=== PATIENT | male | born 1960 | race Caucasian/White ===

== ENCOUNTER 2023-09-01 06:35 | Day surgery (SDC) | payer OTHER, SELFPAY ==
[2023-09-01 08:34] VITALS: BMI 29.5
[2023-09-01 08:35] VITALS: BMI 29.5
[2023-09-01 08:36] VITALS: BP 128/84
[2023-09-01 08:48] LABS: Glucose - Point of Care 88 mg/dl (70-99)
[2023-09-01 10:11] VITALS: BP 102/69
[2023-09-01 10:15] VITALS: BP 97/85
[2023-09-01 10:30] VITALS: BP 119/78
[2023-09-01 10:45] VITALS: BP 129/80
== END 2023-09-01 10:59 | disposition home or self-care (01) ==
LOC: GI 06:35
PROVIDERS: ATTENDING PHYSICIAN Internal Medicine Gastroenterology
DX: Z12.11 Encounter for screening for malignant neoplasm of colon (principal); K57.30 Diverticulosis of large intestine without perforation or abscess without bleeding; K64.0 First degree hemorrhoids; Z86.010 Personal history of colon polyps; Z85.038 Personal history of other malignant neoplasm of large intestine; Z98.890 Other specified postprocedural states
CPT/HCPCS: 45331; 88305; 82962

== ENCOUNTER 2024-01-13 03:06 | Inpatient (IN) | payer OTHER, SELFPAY ==
[2024-01-12 22:39] VITALS: BP 148/81
[2024-01-12 22:56] LABS: % Basophils 0.2 % (0-2); % Eosinophils 1.3 % (0-6); % Immature Granulocytes 0.4 % (0-0.5); % Lymphocytes 8.6 % (20.5-51.1); % Neutrophils 80.5 % (42.2-75.2); Absolute Eosinophils 0.2 10^3/uL (0-0.7); Absolute Immature Granulocytes 0.1 10^3/uL (0-0.05); Absolute Lymphocytes 1.1 10^3/uL (1.2-3.4); Absolute Monocytes 1.1 10^3/uL (0.1-0.6); Hematocrit 38.8 % (39.0-52.0); Hemoglobin 13.4 g/dL (13.0-18.0); Mean Corp Hgb Conc. 34.5 g/dL (33.0-37.0); Mean Corpuscular Hgb 28.7 pg (27.0-31.0); Mean Corpuscular Volume 83.1 fL (80.0-94.0); Mean Platelet Volume 9.3 fL (7.4-10.4); Nucleated Red Blood Cells % 0 % (-); Platelet Count 352 10^3/uL (130-400); Red Blood Cell Count 4.67 10^6/uL (4.70-6.10); Red Cell Dist. Width 13.2 % (11.5-14.5); White Blood Cell Count 12.4 10^3/uL (4.8-10.8)
[2024-01-12 23:11] LABS: Lactic Acid 1.2 mmol/L (0.7-2.0)
[2024-01-12 23:37] LABS: ALT (SGPT) 13 U/L (0-50); AST (SGOT) 16 U/L (17-59); Albumin 4.2 g/dl (3.5-5.0); Alkaline Phosphatase 73 U/L (38-126); Blood Urea Nitrogen 23 mg/dl (9-20); Calcium 9.4 mg/dl (8.4-10.2); Carbon Dioxide 25 mmol/L (22-30); Chloride 100 mmol/L (98-107); Glucose 237 mg/dl (70-99); Potassium 4.6 mmol/L (3.5-5.1); Sodium 136 mmol/L (135-145); Total Bilirubin 0.8 mg/dl (0.2-1.3); Total Protein 6.9 g/dl (6.3-8.2); eGFR > 60.00
[2024-01-13] VITALS (12 sets, daily range): BP systolic 100–148; BP diastolic 61–83; BMI 3873.8; BMI 27.3
[2024-01-13] MEDS: TYLENOL 1000 MG PO (00:14)
--- NOTE | 2024-01-13 00:14 | ED.GENMED ---
History of Present Illness
General
Chief Complaint: Skin Problem
Source: patient
Exam Limitations: none
Time Seen by Provider: 01/12/24 23:46
History of Present Illness
History of Present Illness:
This is a 63 year old male that comes in with c/o possible wound infection. State that he has neuropathy and it is worse on the right side. States that he thinks he had a blister and now it is infected. State that he noticed this about 2 weeks ago
and he thought it was good. Then today it started to swell and he started with a fever yesterday. States that the fever was worse today. States that he had shaking chills with the fever. Denies any chest pain, SOB, abd pain, nausea, vomiting,
diarrhea, headache, dizziness, urinary burning.
Past History
Past History
ED Past Medical History: Hypercholesterolemia, NIDDM and Other (Neuropathy)
ED Past Surgical History: Orthopedic (Right knee surgery) and Urological (Vasectomy); Negative Cardiac
Social History
Tobacco: Non-smoker
Alcohol: Occasional
Drug: None
Personal:
Living: with family
Employment: Employed
Family History
Family History: Diabetes
Review of Systems
Review of Systems
All Other Systems: ROS reviewed and negative except as documented in HPI and ROS
Constitutional: Reports fever and chills
EENT: Reports no symptoms
Respiratory: Reports no symptoms; Denies cough or trouble breathing
Cardiac: Reports no symptoms; Denies chest pain
ABD/GI: Reports no symptoms; Denies abdominal pain, nausea, vomiting or diarrhea
: Reports no symptoms; Denies dysuria, frequency or urgency
Musculoskeletal: Reports other (Swelling right foot)
Skin: Reports other (Open wound on the right foot)
Neurological: Reports no symptoms; Denies dizzy or headache
Psychiatric: Reports no symptoms
Phy Exam
General Physical Exam
General Presentation: no apparent distress
General age: appears stated age
General Skin: warm and dry
General Habitus: normal
General Mental: alert
General Hydration: dry mucous membranes
ENT Exam
ENT Exam: TM's normal, pharynx normal and neck supple
Eye Exam
Eye Exam: EOMI
Cardiovascular Exam
Cardiovascular Exam: regular rate/rhythm and normal peripheral pulses
Pulmonary Exam
Pulmonary Exam: lungs clear, no respiratory distress, no rales, chest non tender, no crackles, no rhonchi, no wheezing and no cough
Gastrointestinal Exam
Gastrointestinal Exam: normal bowel sounds, non tender, soft, no organomegaly, no pulsatile mass and non distended
Musculoskeletal Exam
Musculoskeletal Exam: full ROM and edema (of the right foot slight nonpitting)
Skin Exam
Skin Exam: normal color, warm/dry, no petechia and other (Quarter size open wound on the right planter aspect of the foot. Fowl smell noted. Increased warmth and redness slightly noted under the dumont skin)
Psychiatric Exam
Psychiatric Exam: normal mood/affect
Course
Orders/Labs/Results
Orders:
Orders
01/12/24 22:45
Complete Blood Count/With Diff Urgent
Comprehensive Metabolic Panel Urgent
Lactate Level [Lactic Acid] Urgent
01/13/24 00:12
Acetaminophen [Tylenol] 1,000 mg .ROUTE .STK-MED ONE
Piperacillin/Tazo 3.375 Gram [Zosyn] 3.375 gram in 50 ml IV NOW
Vancomycin 1 Gram/200 ml [Vancocin] 1 gram in 200 ml IV NOW
CR Foot - Right Min 3 Views Urgent
Comment:
Reason For Exam: Open wound on the planter aspect
01/13/24 00:13
Acetaminophen [Tylenol] 1,000 mg PO NOW STA
Acetaminophen [Tylenol] 1,000 mg PO NOW STA
01/13/24 00:14
0.9% Sodium Chloride 1000 ml [Nss] 1,000 ml IV BOLUS
01/13/24 00:25
Wound Culture [Wound/Abscess/Other Culture] Urgent
EMI Source: Foot
Specimen Description: Right
Date Specimen was Collected: 01/13/24
Time Specimen was Collected: 00:16
01/13/24 01:32
0.9% Sodium Chloride 1000 ml [Nss] 1,000 ml IV BOLUS
01/13/24 02:35
Admit/Transfer Patient As Directed
Co-Sign Provider:
Level of Care: Inpatient admission
Assign to:: Telemetry
Physician / Group: htay
Diagnosis: Diabetic Rt foot wound infection with SIRS picture, associated sepsis
Reason for Telemetry: Other
Other Reason for Telemetry: sepsis
Date to Stop Telemetry: 01/15/24
Time to Stop Telemetry: 11:00
Reason for Hospitalization: Diabetic Rt foot wound infection with SIRS picture, associated sepsis
Expected length of stay greater than two midnights?: Yes
ELOS- Estimated Length of Stay in days: 3
I certify the patient meets the requirements for IP care: Yes
PRN Pain Medication Management As Directed
May give lesser potent ordered pain med per pt: Yes
preference::
Protocol:: Medication orders for pain may be administered in a
manner that supports deferring to patient preference
when the pt is:
- Requesting an ordered lesser potent pain medication.
Least to most potent pain medications are defined
as: acetaminophen < NSAID < tramadol < opioids
(morphine, oxycodone, hydromorphone).
- Requesting a lesser dose of the same medication IF
ORDERED.
- Requesting a less intrusive route of administration
if both routes are prescribed by the provider (PO <
IV).
01/13/24 02:39
Code Status As Directed
Resuscitation Status: Full Code
01/13/24 03:00
Flush (0.9% Sodium Chloride) [Flush (Nss)] See Dose Instructions IV PER PROTOCOL
01/15/24 11:00
DC Protocol for Telemetry ONCE
Abnormal Lab Results
01/12/24
22:45
WBC 12.4 H 10^3/uL
(4.8-10.8)
RBC 4.67 L 10^6/uL
(4.70-6.10)
Hct 38.8 L %
(39.0-52.0)
Abs Immat Gran (auto) 0.1 H 10^3/uL
(0-0.05)
Absolute Neuts (auto) 10.0 H 10^3/uL
(1.4-6.5)
Absolute Lymphs (auto) 1.1 L 10^3/uL
(1.2-3.4)
Absolute Monos (auto) 1.1 H 10^3/uL
(0.1-0.6)
Neutrophils % 80.5 H %
(42.2-75.2)
Lymphocytes % 8.6 L %
(20.5-51.1)
BUN 23 H mg/dl
(9-20)
Glucose 237 H mg/dl
(70-99)
AST 16 L U/L
(17-59)
01/12/24 22:45
01/12/24 22:45
Leukocytosis, Dehydration. Hyperglycemia, Lactic acid normal at 1.2
Vital Signs
Initial and Last Documented VS:
Initial Vital Signs
Temp Pulse Resp BP Pulse Ox
101.1 F H 116 19 148/81 98
01/12/24 22:39 01/12/24 22:39 01/12/24 22:39 01/12/24 22:39 01/12/24 22:39
Last Documented Vital Signs
Temp Pulse Resp BP Pulse Ox
99.3 F 94 22 109/67 92
01/13/24 01:20 01/13/24 03:00 01/13/24 03:00 01/13/24 03:00 01/13/24 03:00
MDM/Problems Addressed
Differential Diagnosis Includes:
Cellulitis, open wound
MDM/Problems Addressed:
This is a 63 year old male that comes in with c/o open wound on the right planter aspect of the foot. States that he started with a fever yesterday and the fever was worse today. States that today his foot started to swell.
Explained to patient that there is a fowl smell from the wound and that his WBC are elevated. Patient is a diabetic. Will get X-ray of foot and admit for IV antibiotics. Hospitalist notified.
Chronic conditions affecting care: DM
Acute Exacerbation and/or Progression of Chronic Illness: DM (Neuropathy)
*Radiology
Radiology exam reviewed: preliminary read by ED provider (Right foot- Degenerative changes. Question if patient has broken his toe in the past. Unable to r/o any osteo. )
*Pulse Oximetry
Patient hypoxic: no
*EKG
Interpreted by ED Provider?: NA
Rate: EKG- N/A
*Software Development Project Manager Interpretation
Rate: Software Development Project Manager- N/A
*Critical Care Note
Total Time (30-74mins, 75-104mins- exclusive of procedures): Not Applicable
ED Attending Note
-
Portions of this chart may have been created with voice recognition software.� Occasional wrong word or��sound alike� substitutions may have occurred due to the inherent limitations of voice recognition software.
Discharge Plan
Departure
Patient Disposition: Admit
Date of Disposition: 01/13/24
Time of Disposition: 00:24
Admit to: Med/Surg
Presentation/result/management discussed w/ accepting MD/DO: Hospitalist
Patient with high blood pressure during this ER visit?: Yes
Covid-19: Not Applicable
Discharge Problem:
Open wound of right foot, Cellulitis of foot
Interventions
Interventions:
*Risk Screen - Suicide Last Done: 01/12/24 22:39
*General Assessment Last Done: 01/12/24 22:39
*Neglect/Abuse Screening Last Done: 01/12/24 22:39
ED- Fall Risk Assessment Last Done: 01/13/24 01:22
*ED COVID-19 Vaccine History Last Done: 01/12/24 22:39
ED-Skin Assessment Last Done: 01/12/24 23:50
[2024-01-13] MEDS: NSS 1000 IV ×4 (00:35→16:58)
[2024-01-13] MEDS: ZOSYN 50 IV ×5 (00:35→23:58)
[2024-01-13] MEDS: VANCOCIN 200 IV (01:14)
--- NOTE | 2024-01-13 02:28 | HPS.HSE ---
Family Physician
-
Family Physician: Angie Barvo
Chief Complaint
-
Fever, Diabetic foot wound
History of Present Illness
HPI
63M HX IrT2DM with neuropathy seen at ER for evaluation of Rt foor woound
Open Rt foot wound
- stated as blister
- Denied trauma
- onset of swelling
- associated with fever with chills and rigors at home yesterday
- T max at ER 101.3
- Quarter size open wound on the right planter aspect of the foot.
- Fowl smell noted
- Increased warmth and redness
ROS;
Denies any chest pain, SOB, abd pain, nausea, vomiting, diarrhea, headache, dizziness, urinary burning.
Medical History
Past Medical History
Past Medical History: Reports Hypercholesterolemia and NIDDM (plus neuropathy )
Past Surgical History: Reports Orthopedic (Right knee surgery) and Urological (Vasectomy)
Social History
Tobacco: Non-smoker
Alcohol: Occasional
Personal:
Living: With Family
Employment: Employed
Family History
Family History: Not pertinent
Allergies / Home Medications
Allergies reflects when Allergies were last updated in [employer].
Home Medications with original date entered in [employer]
Allergy/Medication List:
Allergies
Allergy/AdvReac Type Severity Reaction Status Date / Time
No Known Allergies Allergy Verified 01/12/24 22:39
Home Medications
rosuvastatin 5 mg tablet 10 mg PO DAILY High cholesterol 02/06/14
aspirin 81 mg tablet,delayed release 81 mg PO DAILY Blood clot prevention/tx 11/07/19
metformin 1,000 mg tablet 1,000 mg PO BID@0800,1700 Diabetes 11/07/19
empagliflozin 25 mg tablet (Jardiance) 25 mg PO DAILY 12/16/22
insulin glargine 100 unit/mL (3 mL) subcutaneous pen (Lantus Solostar U-100 Insulin) 17 unit SC DAILY 12/16/22
sodium sul 1.479 gram-potas ch 0.188 gram-magnes sul 0.225 gram tablet (Sutab) 1 tab PO . DIRECTED 12/26/22
tirzepatide 5 mg/0.5 mL subcutaneous pen injector (Mounjaro) 5 mg SC QWEEK 09/01/23
Review of Systems
-
Constitutional: Reports No Symptoms
EENT: Reports No Symptoms
Respiratory: Reports No Symptoms
Cardiac: Reports No Symptoms
Abdomen/GI: Reports No Symptoms
: Reports No Symptoms
Musculoskeletal: Reports No Symptoms
Skin: Reports See HPI
Neurological: Reports No Symptoms
Endocrine: Reports No Symptoms
Hematologic/Lymphatic: Reports No Symptoms
Psych: Reports No Symptoms
Physical Exam
Vital Signs
Vital Signs
Temp Pulse Resp BP Pulse Ox
99.3 F 107 18 100/61 92
01/13/24 01:20 01/13/24 01:20 01/13/24 01:20 01/13/24 01:20 01/13/24 01:20
Physical Exam
General: Well Developed, Well Nourished and No Apparent Distress
HEENT: NormoCephalic, Moist mucous membranes and Atraumatic
Respiratory: Clear
Cardiac: S1/S2 and Regular Rhythm; No Murmur or Rub
GI: Soft, Non Tender, Non Distended and Normal Bowel Sounds; No Organomegaly
Rectal: Deferred by Provider
Musculoskeletal: No Clubbing, No Cyanosis and No Edema
Skin: Rash and Other (Quarter size open wound on the Rt planter aspect of the foot. POS Fowl smell noted. Increased warmth and redness slightly noted under the skin)
Neuro: Nonfocal/grossly intact
Psych: Calm
Laboratory Results
-
01/12/24 22:45
01/12/24 22:45
Laboratory Results
Lactic Acid 1.2 mmol/L (0.7-2.0) 01/12/24 22:45
Total Bilirubin 0.8 mg/dl (0.2-1.3) 01/12/24 22:45
AST 16 U/L (17-59) L 01/12/24 22:45
ALT 13 U/L (0-50) 01/12/24 22:45
Alkaline Phosphatase 73 U/L (38-126) 01/12/24 22:45
Data Reviewed
-
Lab Data: Labs Reviewed by me
Old Records: Reviewed
Impression/Plan
-
Reviewed VS: T max 101.3 HR 107 BP 148/80 --> 100/60 HR 107
Data
WCC 12.4
BUN 23
eGFR > 60
R Foot XR; pending report
Wd Cx sent
Last hospitalist admission:
11/07/19- 11/10/19 PDX: Cellulitis of right toe/foot due to diabetes mellitus.
ASSESSMENT & PLAN
Pending Rx reconciliation
Diabetic Rt foot wound infection with mal odor plus SIRS picture ( T 101.3, ST > 90, WCC > 9)
Associated sepsis
No prior MRSA screen micro data
HX Right great toe wound with surrounding cellulitis in october 2019: No XR evidence of OM
- F/U final XR report for OM
- Wd Cx sent from ER
- Empiric Zosyn was given before BCx; No BCx was sent at ER
- Hold further Vancomycin for now
- Podiatry consult
T2DM on Insulin plus Metformin
- held Metformin
- cont Lantus after reconciliation
- add ISS low
Hyperlipidemia
- on Rosuvastatin
- on baby ASA
DVT Px: LMWH
Code: Full
IP MS
[2024-01-13 03:46] LABS: Glucose - Point of Care 157 mg/dl (70-99)
[2024-01-13 07:00] LABS: Glucose - Point of Care 124 mg/dl (70-99)
[2024-01-13] MEDS: NOVOLOG FLEXPEN-LOW RESISTANCE SC ×3 (09:21→16:51)
[2024-01-13] MEDS: ASPIR LOW (ENTERIC COATED) 81 MG PO (09:21)
[2024-01-13] MEDS: CRESTOR 10 MG PO (09:21)
[2024-01-13] MEDS: JARDIANCE 25 MG PO (09:26)
--- NOTE | 2024-01-13 10:35 | PHA.VAN.IN ---
Assessment
- Assessment
Renal Function: Appears similar to baseline (SCR may be slightly elevated)
Maximum Temperature: 101.1 F - ORAL - 01/11 23:39
Concomitant Antimicrobials: piperacillin/tazobactam
AUC Dosing Plan
- Dosing Variables
Dosing Weight (kg): 91
Dosing CrCl (ml/min): 84
Vd coefficient (L/kg): 0.7
- Empiric Dosing
Initial / Loading Dose: 2000mg - administration pending
Maintenance Regimen: Vanc 1250mg Q12H starting 01/13 06
Estimated AUC (mcg*h/mL): 559
Estimated Peak (mcg*h/mL): 33.3
Estimated Trough (mcg/ml): 15.3
Estimated Half Life (H): 9.3
Received 1000mg 01/12 01:14 - expect levels low - will give load to maintain through rest of day
- Monitoring
No levels ordered at this time: consider levels in next few days
Pharmacokinetics Vancomycin I
- -
Patient Age: 63
Patient Sex: Male
Vancomycin Day #: 1
Indication: Skin And Soft Tissue
Requesting Provider: Dr. Jean Moreno
Pertinent Antimicrobial Allergies:
NKDA
Height / Weight:
Height 6 ft
Actual Weight 91.371 kg
Pertinent Past Medical History: DM
- Vital Signs / Lab Results
Temp Pulse Resp BP Pulse Ox
99.1 F 90 16 119/64 98
01/13/24 07:00 01/13/24 07:00 01/13/24 07:00 01/13/24 07:00 01/13/24 07:00
Lab Results - Hematology
01/12/24
22:45
WBC 12.4 H
Lab Results - Chemistry
01/12/24
22:45
BUN 23 H
Creatinine 1.0
Albumin 4.2
01/12/24 01/13/24 01/13/24
22:45 03:31 07:31
Lactic Acid 1.2 Cancelled Cancelled
[2024-01-13 11:58] LABS: Glycohemoglobin (HgbA1c) 8.1 % (4.0-5.6)
[2024-01-13 11:59] LABS: Lactic Acid 0.8 mmol/L (0.7-2.0)
[2024-01-13] MEDS: VANCOCIN 540 MG IV (12:19)
[2024-01-13 12:55] LABS: Glucose - Point of Care 136 mg/dl (70-99)
--- NOTE | 2024-01-13 13:17 | W.PN.UPDATE ---
Update Note
Progress Note Update
Nonbillable note
1. Right Diabetic foot infection - right foot lateral plantar area wound ,no drainage, no significnat bogginess on exam. wound cs collected in ER. no blood cs, already on vanc/zosyn. Foot xr did not show any osteo,. MRI foot ordered to check for
soft tissue infection extent. Podiatry and ID to evaluate
Denies vasculopathy in past, no cva/cad/pad. diabetic for 5-10 yrs - check LE art US.
2. NIDDM -reported last A1c of 7.5. On Mounjaro/Jardiance only. Have not been on insulin in the past. Managed by endocrinology. Maintain on sliding scale with Jardiance. Follow renal function. Repeat A1c pending
--- NOTE | 2024-01-13 14:16 | CM ---
Alert awake oriented patient who lives with his Elena who lives in a 2 story home with 1 step to enter and 14 steps to bed and bathroom. He is independent in driving and in all activities of daily living.He was offered VN he declined need.
No VN hx / No SNF history
Pharmacy [facility]
PCP DR Bravo
PLAN Home Declined VN
[2024-01-13 15:41] LABS: Lactic Acid 0.7 mmol/L (0.7-2.0)
[2024-01-13 16:34] LABS: Glucose - Point of Care 83 mg/dl (70-99)
--- NOTE | 2024-01-13 16:34 | CON.ID ---
Consultation
-
Date/Time Consultation Requested: 01/13/24 10:38
Date/Time Consultation Performed: 01/13/24 16:34
Requesting Provider: Dr Moreno
Performing Provider: Dr Myers
Reason for Consultation: right foot diabetic wound
Chief Complaint / Past History
Chief Complaint
right plantar foot wound
History of Present Illness
Mr Javed is a 63 year old male with history of DM2 who developed a blister over the right medial plantar foot spontaneously, no trauma. He has had fevers, chills, foul smelling drainage, increased warmth and redness. Denies: chest pain,
shortness of breath, abd pain, nausea, vomiting, diarrhea, headache, dizziness, urinary burning.
Since arrival here tmax 101.1 orally, bp stable, wbc 12.4, hgb 13, plt 352, L shift noted, cr 1.0, a1c 8.1, lactic acid 1.2, t bili 0.8, ast 16, alt 13, alk pohs 73, arterial study done not yet read, xray: 'Moderate degenerative changes of the first
metatarsophalangeal joint with chronic osseous fragments about the joint space, moderate swelling... foreign body noted, no convincing osteo' 2020 MRI of the right foot also on file: suggestion of osteomyelitis or posttraumatic injury of the FIRST
MTP joint; he does report mote treatment. I do not see an evaluation from [place] or further notes in [facility] around that time. Currently on vancomycin and zosyn.
Past History
Additional Past Medical History:
Hypercholesterolemia and NIDDM
Additional Past Surgical History:
Orthopedic (Right knee surgery) and Urological (Vasectomy)
Allergy History:
No Known Allergies Allergy (Verified 01/12/24 22:39)
Medications Reviewed: Yes
Social History
Tobacco: Non-Smoker
Alcohol: Occasional
Personal:
Family History
Family History: Not Pertinent
Review of Systems
Review of Systems
General: Fever and Chills
All systems: All other systems were reviewed and were negative
Vital Signs
Temp Pulse Resp BP Pulse Ox
99.5 F 98 18 148/83 99
01/13/24 15:13 01/13/24 15:13 01/13/24 15:13 01/13/24 15:13 01/13/24 15:13
Physical Exam
Lab / Diagnostic Study Results
01/12/24 22:45
01/12/24 22:45
Abs Immat Gran (auto) 0.1 10^3/uL (0-0.05) H 01/12/24 22:45
Absolute Neuts (auto) 10.0 10^3/uL (1.4-6.5) H 01/12/24 22:45
Absolute Lymphs (auto) 1.1 10^3/uL (1.2-3.4) L 01/12/24 22:45
Absolute Monos (auto) 1.1 10^3/uL (0.1-0.6) H 01/12/24 22:45
Absolute Basos (auto) 0.0 10^3/uL (0-0.2) 01/12/24 22:45
Immature Gran % 0.4 % (0-0.5) 01/12/24 22:45
Neutrophils % 80.5 % (42.2-75.2) H 01/12/24 22:45
Lymphocytes % 8.6 % (20.5-51.1) L 01/12/24 22:45
Monocytes % 9.0 % (1.7-9.3) 01/12/24 22:45
Eosinophils % 1.3 % (0-6) 01/12/24 22:45
Basophils % 0.2 % (0-2) 01/12/24 22:45
Lactic Acid 0.7 mmol/L (0.7-2.0) 01/13/24 15:12
Microbiology Results
Micro:
01/13/24 00:25 Wound Culture - Pending
Foot - Right Gram Stain - Preliminary
01/13/24 05:35 MRSA Screen - Pending
Nose
Assessment / Plan
Diabetic Foot Wound -chronic
DM2
- recommend MRI foot with IV contrast
- had fevers and chills and on empiric antibiotics vancomycin and zosyn, these can continue
- 2020 MRI suggestive of osteomyelitis in the same location
- getting vascular assessment
- recommend tight glucose control - can be addressed outpatient
- podiatry consultation pending - appreciate assistance, partial amputation might be a curative option
[2024-01-13] MEDS: LOVENOX 40 MG SC (16:59)
--- NOTE | 2024-01-13 20:57 | W.PN.POD ---
Today's Communication
- Today's Communication
podiatry consult for diabetic right foot wound
Assessment / Plan
- -
diabetic foot ulcer plantar 5th MPJ, lateral aspect
x-ray negative for osteo
ordered MRI, tomorrow
awaiting results
continue iv antibiotics vanco/zosyn
wound care consult
darco offloading shoe
Subjective/Objective
- Subjective
patient presented to ED with fever, chills and wound bottom
of right foot
diabetic patient with neuropathy
NIDDM 20 years, a1c 7.5
thinks a blister started 2 weeks ago
healed but then worsened this week
right foot swelled with open wound right foot, admitted for IV antibiotics
vascular normal jama, no stenosis
- Objective
Temp Pulse Resp BP Pulse Ox
98.8 F 96 18 110/65 95
01/13/24 19:40 01/13/24 19:40 01/13/24 19:40 01/13/24 19:40 01/13/24 19:40
01/12/24 22:45
01/12/24 22:45
Vital Signs and Lab results were reviewed.
quarter sized wound plantar surface 5th
metatarsal head
no odor
moderate drainage serosanguinous
no tunnelling or undermining
no sinus tract
no purulent drainage
no hyperkeratotic collar
some surr. inflammation
[2024-01-13 21:21] LABS: Glucose - Point of Care 147 mg/dl (70-99)
[2024-01-13] MEDS: TYLENOL 650 MG PO (22:11)
[2024-01-14 03:30] VITALS: BP 118/68
[2024-01-14] MEDS: NSS 1000 IV (05:00)
[2024-01-14] MEDS: ZOSYN 50 IV ×4 (05:01→23:46)
[2024-01-14] MEDS: VANCOCIN 275 MG IV ×2 (05:34→18:44)
[2024-01-14 07:50] VITALS: BP 142/83
[2024-01-14 08:07] LABS: Glucose - Point of Care 109 mg/dl (70-99)
[2024-01-14 08:10] LABS: Hemoglobin 12.3 g/dL (13.0-18.0); Mean Corp Hgb Conc. 34.2 g/dL (33.0-37.0); Mean Corpuscular Hgb 28.7 pg (27.0-31.0); Mean Corpuscular Volume 84.1 fL (80.0-94.0); Mean Platelet Volume 9.3 fL (7.4-10.4); Platelet Count 294 10^3/uL (130-400); Red Blood Cell Count 4.28 10^6/uL (4.70-6.10); White Blood Cell Count 9.9 10^3/uL (4.8-10.8)
[2024-01-14] MEDS: NOVOLOG FLEXPEN-LOW RESISTANCE SC ×2 (08:11→12:48)
[2024-01-14] MEDS: CRESTOR 10 MG PO (08:11)
[2024-01-14] MEDS: JARDIANCE 25 MG PO (08:12)
[2024-01-14] MEDS: ASPIR LOW (ENTERIC COATED) 81 MG PO (08:12)
[2024-01-14 09:37] LABS: ALT (SGPT) < 10 U/L (0-50); AST (SGOT) 14 U/L (17-59); Albumin 3.5 g/dl (3.5-5.0); Alkaline Phosphatase 68 U/L (38-126); Blood Urea Nitrogen 14 mg/dl (9-20); Calcium 8.8 mg/dl (8.4-10.2); Carbon Dioxide 20 mmol/L (22-30); Chloride 104 mmol/L (98-107); Estimated Creatinine Clearance 105 ml/min; Glucose 91 mg/dl (70-99); Potassium 4.8 mmol/L (3.5-5.1); Sodium 137 mmol/L (135-145); Total Protein 6.1 g/dl (6.3-8.2); eGFR > 60.00
[2024-01-14 11:19] VITALS: BP 128/86
--- NOTE | 2024-01-14 12:07 | W.PN.ID1 ---
Date of Service
Date of Service: January 14, 2024
Today's Communication
todays MRI with possible small abscess and osteomyelitis 5th mtp joint, wound with slough in the base, message sent to podiatry to [facility] about possible surgical plans
Assessment / Plan
Diabetic Foot Wound -chronic
DM2
- todays MRI with possible small abscess and osteomyelitis 5th mtp joint, wound with slough in the base, message sent to podiatry to [facility] about possible surgical plans, first MTP joint without evidence of osteomyelitis
- continue empiric antibiotics vancomycin and zosyn
- OSWALDO normal
- recommend tight glucose control - can be addressed outpatient
- follow clinically
Chief Complaint
-: Other (diabetic foot wound)
Subjective / Review of Systems
tmax 100.0
bp stable
without leukocytosis
cr 0.8
normal OSWALDO
superficial culture rare GPCs on gram stain
patient feels confident that he got treatment for the right great toe here, reports he never saw ID, I do see an admission H&P for cellulitis of the right great toe after stubbing it and developing a wound, the Xray 11/07/19 had no fracture or
dislocation. He was treated with a week of augmentin. Then 12/14/19 there is an MRI of the R foot ordered by Dr Kimble podiatry with abnormal thickening of the soft tissues and abnormal marrow signal suggestive of osteo with moderate suspicion
for osteomyelitis, I wonder if this study was done outpatient as I do not see note referring to the management of these findings. I have sent a tiger text to Dr Kimble to inquire. She reports she saw him for hallux dislocation and ulcer and
will send me a copy of her progress note. He does not recall previous IV antibiotics.
current MRI does NOT show evidence of current osteomyelitis but there is modeate degenerative change
todays MRI with possible small abscess and osteomyelitis, wound with slough in the base, message sent to podiatry to [facility] about possible surgical plans
Vital Signs / Physical Exam
Vital Signs
Vital Signs
Temp Pulse Resp BP Pulse Ox
98.4 F 100 18 128/86 99
01/14/24 11:19 01/14/24 11:19 01/14/24 11:19 01/14/24 11:19 01/14/24 11:19
Physical Exam
Constitutional: No Acute Distress
Cardiovascular: Regular Rate and S1/S2; Negative Murmur or Rub
Pulmonary: Clear and Symmetric; Negative Wheezes or Rales
Gastrointestinal: Soft, Non Tender, Non Distended and Normal Bowel Sounds
Skin: Warm and Dry; Negative Rash or Jaundice
Wound: Other (slough in the wound base, no surrounding cellulitis)
Objective Data
Lab Data
Lab Results
01/14/24 06:58
01/14/24 06:58
Estimated Creat Clear 105 ml/min 01/14/24 06:58
Lactic Acid 0.7 mmol/L (0.7-2.0) 01/13/24 15:12
Total Bilirubin 1.0 mg/dl (0.2-1.3) 01/14/24 06:58
AST 14 U/L (17-59) L 01/14/24 06:58
ALT < 10 U/L (0-50) 01/14/24 06:58
Alkaline Phosphatase 68 U/L (38-126) 01/14/24 06:58
Most recent labs reviewed.
Micro Results:
01/13/24 00:25 Wound Culture - Preliminary
Foot - Right Gram Stain - Preliminary
01/13/24 05:35 MRSA Screen - Final
Nose No Methicillin Resistant Staphylococcus aureus isolated.
Care Review
Plan reviewed with: Physician (Dr Nieto, Dr Moreno - surgical podiatry)
[2024-01-14 12:34] LABS: Glucose - Point of Care 140 mg/dl (70-99)
[2024-01-14] MEDS: FLUSH (NSS) 2 FLUSH IV (12:50)
--- NOTE | 2024-01-14 13:37 | PHA.VAN.FU ---
Addendum entered and electronically signed by Sole Ponce [facility] 01/14/24 16:31:
BUN & SCR ordered per protocol
Original Note:
Vancomycin Assessment / Plan
- Assessment
Renal Function: SCR Decreasing
WBC's are: WNL
In the past 24 hrs, patient has been: Afebrile
Concomitant Antimicrobials: piperacillin/tazobactam
received IV contrast with MRI today
- Dosing Plan
Continue: Vanc 1250mg Q12H
- Monitoring Plan
No level(s) ordered at this time: consider levels in next few days
- Follow Up
Pharmacy will continue to follow.
Vancomycin Follow UP
- -
Patient Age: 63
Patient Sex: Male
Vancomycin Day #: 2
Indication: Skin And Soft Tissue
Requesting Provider: Dr. Jean Moreno / [place]
Pertinent Antimicrobial Allergies:
NKDA
Height / Weight:
Height 6 ft
Actual Weight 91.371 kg
Pertinent Past Medical History: DM
- Vital Signs / Lab Results
Temp Pulse Resp BP Pulse Ox
98.4 F 100 18 128/86 99
01/14/24 11:19 01/14/24 11:19 01/14/24 11:19 01/14/24 11:19 01/14/24 11:19
Lab Results - Hematology
01/12/24 01/14/24
22:45 06:58
WBC 12.4 H 9.9
Lab Results - Chemistry
01/12/24 01/14/24
22:45 06:58
BUN 23 H 14
Creatinine 1.0 0.8
Estimated Creat Clear 105
Albumin 4.2 3.5
01/12/24 01/13/24 01/13/24
22:45 03:31 07:31
Lactic Acid 1.2 Cancelled Cancelled
01/13/24 01/13/24
11:39 15:12
Lactic Acid 0.8 0.7
Microbiology Results
01/13/24 00:25 Wound Culture - Preliminary
Foot - Right Gram Stain - Preliminary
01/13/24 05:35 MRSA Screen - Final
Nose No Methicillin Resistant Staphylococcus aureus isolated.
--- NOTE | 2024-01-14 14:09 | WOUNDNOTE ---
[facility] RN note: Patient admitted with right plantar foot wound
See H&P for complete history.
PMH: Diabetes A1c 7.5
Wound Location and type/assessment: Patient admitted with right plantar foot wound and infection. Wound is covered with thick yellow slough and moderate drainage. MRI revealed osteo. Normal OSWALDO bilaterally. Patient demonstrates good mobility and
good appetite.
Plan: Clean with Dakin's and apply alginate and silicone foam dressing daily. Will await and follow for plan from certified fire investigator. Patient agrees to follow up with wound care and podiatry. Need for off-loading discussed with patient. Patient verbalized
understanding that his A1c is high and is working toward better blood glucose control. Patient plans on providing own wound care at home. Will continue to follow as needed. Will confirm orders with hospitalist and update nurse. Updated care plan
and will follow as needed.
Recommend follow up at wound care center upon discharge.
--- NOTE | 2024-01-14 14:22 | WOUNDNOTE ---
RIGHT PLANTAR FOOT WOUND
--- NOTE | 2024-01-14 14:57 | W.PN.HOSP.TC ---
Today's Communication/Plan
-
await surgical pods
abx per ID
Assessment / Plan
Assessment / Plan
MRI Right foot
Significant susceptibility artifact within the plantar soft tissues adjacent to the fifth metatarsophalangeal joint, from small metallic foreign body seen on plain radiographs. There is also a soft tissue wound in this region, which is better
visualized on plain radiographs.
There is abnormal marrow signal and enhancement involving the proximal aspect of the proximal phalanx, with some loss of plantar cortical definition, and this finding is highly suspicious for osteomyelitis. There is also some patchy marrow
abnormality and enhancement involving the distal fifth metatarsal head, which is also moderately suspicious for osteomyelitis.
Small complex fluid collection between the distal fourth and fifth metatarsal bones, which is likely a small abscess.
Arterial US
1. Normal ankle brachial indices on each side.
2. No focal arterial stenosis demonstrated on either side.

1. Right Diabetic foot infection
- right foot lateral plantar area wound ,no drainage, no significnat bogginess on exam.
- wound cs collected in ER. no blood cs,
- already on vanc/zosyn.
- Foot xr did not show any osteo have small splinter like FB in the wound
- MRI foot report as above
- LE art doppler did not show any critical narrowing
- surgical podiatry consulted for possible debridement of the area/bone biopsy
2. NIDDM
- reported last A1c of 7.5 in past, this hospitalization is 81.
- On Mounjaro/Jardiance/metformin only.
- Have not been on insulin in the past.
- Managed by endocrinology outpatient .
- Maintain on sliding scale with Jardiance.
3. HLD
- continue on crestor
Full code
Total time spent : 53 mins
I personally saw and examined the patient.
I have reviewed all diagnostic interpretations and treatment plans as written.
Time includes patient management by me, time spent at the patients bedside, time to review lab and imaging results, discussing patient care, documentation in the medical record, and time spent with the family or caregiver and discussing care plan
with RN/Consultants.
Anticipated Discharge: 24 - 48 hours
Subjective/Interval History
-
Date of Service: January 14, 2024
no issues overnight
Objective Data
-
Labs:
Laboratory Results
01/14/24
06:58
WBC 9.9
Hgb 12.3 L
Hct 36.0 L
Plt Count 294
Sodium 137
Potassium 4.8
Chloride 104
Carbon Dioxide 20 L
BUN 14
Creatinine 0.8
Glucose 91
Calcium 8.8
Total Bilirubin 1.0
AST 14 L
ALT < 10
Alkaline Phosphatase 68
Vital Signs:
Vital Signs
Temp Pulse Resp BP Pulse Ox
98.4 F 100 18 128/86 99
01/14/24 11:19 01/14/24 11:19 01/14/24 11:19 01/14/24 11:19 01/14/24 11:19
I&O
01/13/24 01/14/24 01/15/24
06:59 06:59 06:59
Intake Total 3575 / 3575
Balance 3575 / 3575
Review of Systems
-
Respiratory: Reports No Symptoms
Cardiac: Reports No Symptoms
Abdomen/GI: Reports No Symptoms
Physical Exam
-
General: Comfortable
HEENT: Negative Oxygen
Respiratory: Clear to Auscultation
Cardiac: Regular Rhythm and S1/S2; Negative Murmur or Rub
GI: Soft, Nontender and Nondistended
Skin: Other (Right foot plantar surface wound, no drainage)
Neuro: Awake, Alert, Oriented, No Motor Deficits and Nonfocal/Grossly Intact
Psych: Calm
[2024-01-14 15:05] VITALS: BP 129/75
[2024-01-14 16:16] LABS: Glucose - Point of Care 176 mg/dl (70-99)
[2024-01-14] MEDS: LOVENOX SC ×2 (18:09→18:22)
[2024-01-14] MEDS: GLUCOPHAGE 1000 MG PO (18:09)
[2024-01-14] MEDS: NOVOLOG FLEXPEN-LOW RESISTANCE 1 UNITS SC (18:09)
[2024-01-14 21:13] LABS: Glucose - Point of Care 157 mg/dl (70-99)
[2024-01-14] MEDS: DAKIN'S SOLUTION 0.125% 1/4 STRENGTH 1 ML TOPICAL (21:29)
[2024-01-14 23:27] VITALS: BP 121/74
[2024-01-15] VITALS (13 sets, daily range): BP systolic 14–138; BP diastolic 69–85
[2024-01-15] MEDS: ZOSYN 50 IV ×3 (05:24→19:50)
[2024-01-15] MEDS: VANCOCIN 275 MG IV ×2 (06:06→20:39)
[2024-01-15 07:04] LABS: Glucose - Point of Care 122 mg/dl (70-99)
[2024-01-15 07:46] LABS: Blood Urea Nitrogen 16 mg/dl (9-20); Estimated Creatinine Clearance 84 ml/min
--- NOTE | 2024-01-15 08:01 | CON.MD ---
Consultation - Medical
-
CC/HPI:
Podiatry is consulted for right plantar foot wound. Mr Javed is a 63 year old male with history of DM2 who developed a blister over the right medial plantar foot spontaneously from sneakers that were rubbing in the area. He noted worsening
appearance of wound in the form of redness, swelling and foul smelling drainage as well as, fevers, & chills.
Past History
Additional Past Medical History:
Hypercholesterolemia and NIDDM
Additional Past Surgical History:
Orthopedic (Right knee surgery) and Urological (Vasectomy)
Allergy History:
Allergies:
No Known Allergies Allergy
Medications Reviewed: Yes
Social History
Tobacco: Non-Smoker
Alcohol: Occasional
Personal:
Family History
Family History: Not Pertinent
Review of Systems
General: Fever and Chills
All systems: All other systems were reviewed and were negative
Vital Signs
Temp Pulse Resp BP Pulse Ox
99.5 F 98 18 148/83 99
01/13/24 15:13 01/13/24 15:13 01/13/24 15:13 01/13/24 15:13 01/13/24 15:13
Physical Exam:
Right foot with palpable pulses, CFT wNL, normal proximal to distal cooling. There is a submet 5 wound that measures 1.5 cm x 2.5 cm x 0.3 cm, except for centrally where it probes deeper to capsule or possibly bone near the 5th mpj. the wound is
fibrotic with mild serous drianage. There is surround erythema and edema.
xray: 'Moderate degenerative changes of the first metatarsophalangeal joint with chronic osseous fragments about the joint space, moderate swelling... foreign body noted, no convincing osteomyelitis.
MRI: Significant susceptibility artifact within the plantar soft tissues adjacent to the fifth metatarsophalangeal joint, from small metallic foreign body seen on plain radiographs. There is also a soft tissue wound in this region, which is better
visualized on plain radiographs.
There is abnormal marrow signal and enhancement involving the proximal aspect of the proximal phalanx, with some loss of plantar cortical definition, and this finding is highly suspicious for osteomyelitis. There is also some patchy marrow
abnormality and enhancement involving the distal fifth metatarsal head, which is also moderately suspicious for osteomyelitis.
Small complex fluid collection between the distal fourth and fifth metatarsal bones, which is likely a small abscess.
Impression:
Right Diabetic Foot Wound -chronic with possible OM, possible abscess
DM2
Plan:
Continue antibiotics vancomycin and zosyn per ID
Wound is inspected and debrided at bedside to remove and non viable slough and fibrotic tissue excisionally with scissors and forceps.
Discussed surgical options in great detail. He is agreeable to washout, bone biopsy and debridement of the wound in the morning. Surgical consent is reviewed and discussed. Risks, benefits and complications of surgery are discussed.
[2024-01-15] MEDS: NOVOLOG FLEXPEN-LOW RESISTANCE SC ×3 (09:06→17:35)
[2024-01-15] MEDS: JARDIANCE 25 MG PO (09:06)
[2024-01-15] MEDS: CRESTOR 10 MG PO (09:06)
[2024-01-15] MEDS: GLUCOPHAGE 1000 MG PO (09:06)
[2024-01-15] MEDS: ASPIR LOW (ENTERIC COATED) 81 MG PO (09:06)
[2024-01-15] MEDS: DAKIN'S SOLUTION 0.125% 1/4 STRENGTH 15 ML TOPICAL (09:07)
[2024-01-15] MEDS: FLUSH (NSS) 1 FLUSH IV (09:08)
--- NOTE | 2024-01-15 10:30 | WOUNDNOTE ---
WOC RN NOTE: Reviewed chart and TT with Dr. Marie regarding off-loading shoe. Plan is for Dr. Marie to order [facility] consult for orthowedge shoe after surgery. Will continue to follow as needed.
--- NOTE | 2024-01-15 11:30 | PN.CDI ---
CDI
- -
CDI:
Physician Documentation Request
Admit Date: 01/13/24 03:06
Dear Doctor Josh,
Please review the following and provide your response in the progress notes.
Clinical Indicators:
Documentation in the record in H&P 01/13/24 includes the diagnosis of sepsis. The following clinical information was noted in the record:
Pt admitted with Right diabetic foot infection.
01/12 H&P: 'Diabetic Rt foot wound infection with mal odor plus SIRS picture ( T 101.3, ST > 90, WCC > 9)
Associated sepsis.'
Selected Entries
01/12/24
22:39 01/13/24
19:40
Temp 101.1 F H 100.0
Pulse 116 96
Laboratory Tests
01/12/24
22:45
WBC 12.4 H
Based on the above information and the recognized standard SIRS criteria, please clarify if sepsis is still an accurate diagnosis, and reflective of the patient�s condition, to ensure quality of the medical record.
Please clarify in the Progress Notes:
Sepsis is/was present and is a clinical diagnosis.
After study sepsis has been ruled out
Other
Use of terms such as suspected, likely, concern for, or probable (associated with a specific diagnosis that is being evaluated, monitored, or treated as if it exists) are acceptable and can be coded in the inpatient setting, when documented at the
time of discharge.
Thank you,
Breanne Lewis RN, BSN
CDI Specialist
Available via [employer]
Please use your independent medical judgment in providing your response.
[2024-01-15 11:42] LABS: Glucose - Point of Care 131 mg/dl (70-99)
[2024-01-15] MEDS: FLUSH (NSS) 2 FLUSH IV (13:06)
--- NOTE | 2024-01-15 13:18 | PHA.VAN.FU ---
Vancomycin Assessment / Plan
- Assessment
Renal Function: SCR Increasing (0.8>1.0)
WBC's are: Trending Down (12.4>9.9)
In the past 24 hrs, patient has been: Afebrile
Concomitant Antimicrobials: Piperacillin-tazobactam
- Dosing Plan
Continue: Vancomycin 1250mg IV Q12 hrs
- Monitoring Plan
No level(s) ordered at this time: Will order levels according to vancomycin dosing protocol
- Follow Up
Pharmacy will continue to follow.
Vancomycin Follow UP
- -
Patient Age: 63
Patient Sex: Male
Vancomycin Day #: 3
Indication: Skin And Soft Tissue
Requesting Provider: Dr. Jean Moreno / [place]
Pertinent Antimicrobial Allergies:
NKDA
Height / Weight:
Height 6 ft
Actual Weight 91.371 kg
IBW in k.6
Adjusted BW in k.1
Pertinent Past Medical History: DM
- Vital Signs / Lab Results
Temp Pulse Resp BP Pulse Ox
98.6 F 89 18 124/72 98
01/15/24 07:00 01/15/24 07:00 01/15/24 07:00 01/15/24 07:00 01/15/24 07:00
Lab Results - Hematology
01/12/24 01/14/24
22:45 06:58
WBC 12.4 H 9.9
Lab Results - Chemistry
01/12/24 01/14/24 01/15/24
22:45 06:58 06:36
BUN 23 H 14 16
Creatinine 1.0 0.8 1.0
Estimated Creat Clear 105 84
Albumin 4.2 3.5
01/15/24
09:04
BUN Cancelled
Creatinine Cancelled
Estimated Creat Clear Cancelled
Albumin
01/12/24 01/13/24 01/13/24
22:45 03:31 07:31
Lactic Acid 1.2 Cancelled Cancelled
01/13/24 01/13/24
11:39 15:12
Lactic Acid 0.8 0.7
Microbiology Results
01/13/24 00:25 Wound Culture - Preliminary
Foot - Right Gram negative bacilli
Staphylococcus species
Streptococcus agalactiae
Gram Stain - Preliminary
01/13/24 05:35 MRSA Screen - Final
Nose No Methicillin Resistant Staphylococcus aureus isolated.
--- NOTE | 2024-01-15 13:58 | W.PN.HOSP.TC ---
Today's Communication/Plan
-
for OR tomorrow
abx per ID
continue other care
Assessment / Plan
Assessment / Plan
MRI Right foot
Significant susceptibility artifact within the plantar soft tissues adjacent to the fifth metatarsophalangeal joint, from small metallic foreign body seen on plain radiographs. There is also a soft tissue wound in this region, which is better
visualized on plain radiographs.
There is abnormal marrow signal and enhancement involving the proximal aspect of the proximal phalanx, with some loss of plantar cortical definition, and this finding is highly suspicious for osteomyelitis. There is also some patchy marrow
abnormality and enhancement involving the distal fifth metatarsal head, which is also moderately suspicious for osteomyelitis.
Small complex fluid collection between the distal fourth and fifth metatarsal bones, which is likely a small abscess.
Arterial US
1. Normal ankle brachial indices on each side.
2. No focal arterial stenosis demonstrated on either side.

1. Right Diabetic foot infection
- right foot lateral plantar area wound ,no drainage, no significnat bogginess on exam.
- wound cs collected in ER. no blood cs,
- already on vanc/zosyn.
- Foot xr did not show any osteo have small splinter like FB in the wound
- MRI foot report as above
- LE art doppler did not show any critical narrowing
- Underwent bedside debridement by surgical podiatry. Going for further intraoperative debridement and possible bone biopsy tomorrow
2. NIDDM
- reported last A1c of 7.5 in past, this hospitalization is 81.
- On Mounjaro/Jardiance/metformin only.
- Have not been on insulin in the past.
- Managed by endocrinology outpatient .
- Maintain on sliding scale with Jardiance/metformin.
3. HLD
- continue on crestor
Full code
Anticipated Discharge: 24 - 48 hours
Subjective/Interval History
-
Date of Service: January 15, 2024
No complaints overnight
Podiatry did bedside debridement of the wound
Objective Data
-
Labs:
Laboratory Results
01/15/24 01/15/24
06:36 09:04
PT Cancelled
INR Cancelled
Sodium Cancelled
Potassium Cancelled
Chloride Cancelled
Carbon Dioxide Cancelled
BUN 16 Cancelled
Creatinine 1.0 Cancelled
Glucose Cancelled
Calcium Cancelled
Vital Signs:
Vital Signs
Temp Pulse Resp BP Pulse Ox
98.6 F 89 18 124/72 98
01/15/24 07:00 01/15/24 07:00 01/15/24 07:00 01/15/24 07:00 01/15/24 07:00
I&O
01/14/24 01/15/24 01/16/24
06:59 06:59 06:59
Intake Total 3575 / 3575 1829 / 1829
Balance 3575 / 3575 1829 / 1829
Review of Systems
-
Respiratory: Reports No Symptoms
Cardiac: Reports No Symptoms
Abdomen/GI: Reports No Symptoms
Physical Exam
-
General: Comfortable
HEENT: Negative Oxygen
Respiratory: Clear to Auscultation
Cardiac: Regular Rhythm and S1/S2; Negative Murmur or Rub
GI: Soft, Nontender and Nondistended
Skin: Other (Right foot plantar surface wound, no drainage)
Neuro: Awake, Alert, Oriented, No Motor Deficits and Nonfocal/Grossly Intact
Psych: Calm
--- NOTE | 2024-01-15 14:54 | W.PN.ID1 ---
Date of Service
Date of Service: January 15, 2024
Today's Communication
- continue empiric antibiotics vancomycin and zosyn
Assessment / Plan
Diabetic Foot Wound -chronic
DM2
- MRI with possible small abscess and osteomyelitis 5th mtp joint, wound with slough in the base
- for washout, debridement and bone biopsy in the morning
- continue empiric antibiotics vancomycin and zosyn
- OSWALDO normal
- recommend tight glucose control - can be addressed outpatient
- follow clinically
Chief Complaint
-: Other (diabetic foot wound with underlying osteomyelitis)
Subjective / Review of Systems
afebrile
bp stable
MRI osteo and abscess proximal aspect of the proximal phalanx, and distal 5th met head
Vital Signs / Physical Exam
Vital Signs
Vital Signs
Temp Pulse Resp BP Pulse Ox
98.6 F 89 18 124/72 98
01/15/24 07:00 01/15/24 07:00 01/15/24 07:00 01/15/24 07:00 01/15/24 07:00
Physical Exam
Constitutional: No Acute Distress
Cardiovascular: Regular Rate and S1/S2; Negative Murmur or Rub
Pulmonary: Clear and Symmetric; Negative Wheezes or Rales
Gastrointestinal: Soft, Non Tender, Non Distended and Normal Bowel Sounds
Skin: Warm and Dry; Negative Rash or Jaundice
Objective Data
Lab Data
Lab Results
01/14/24 06:58
01/15/24 09:04
PT Cancelled 01/15/24 09:04
INR Cancelled 01/15/24 09:04
Estimated Creat Clear Cancelled 01/15/24 09:04
Lactic Acid 0.7 mmol/L (0.7-2.0) 01/13/24 15:12
Total Bilirubin 1.0 mg/dl (0.2-1.3) 01/14/24 06:58
AST 14 U/L (17-59) L 01/14/24 06:58
ALT < 10 U/L (0-50) 01/14/24 06:58
Alkaline Phosphatase 68 U/L (38-126) 01/14/24 06:58
Most recent labs reviewed.\\
Wound/abscess/other Cult Preliminary 01/15/24-1210
Few Gram negative bacilli
Moderate Staphylococcus species
Moderate Streptococcus agalactiae-Group B*
Micro Results:
01/13/24 00:25 Wound Culture - Preliminary
Foot - Right Gram negative bacilli
Staphylococcus species
Streptococcus agalactiae
Gram Stain - Preliminary
01/13/24 05:35 MRSA Screen - Final
Nose No Methicillin Resistant Staphylococcus aureus isolated.
[2024-01-15] MEDS: GLUCOPHAGE PO (17:36)
[2024-01-15 19:20] LABS: Glucose - Point of Care 81 mg/dl (70-99)
[2024-01-15] MEDS: LOVENOX 40 MG SC (19:50)
[2024-01-15 21:34] LABS: Glucose - Point of Care 165 mg/dl (70-99)
[2024-01-16 00:20] VITALS: BP 123/80
[2024-01-16] MEDS: ZOSYN 50 IV ×5 (01:24→23:18)
[2024-01-16 03:22] VITALS: BP 122/75
[2024-01-16] MEDS: VANCOCIN 275 MG IV (06:28)
[2024-01-16 07:18] VITALS: BP 124/74
[2024-01-16 07:22] LABS: PT 15.1 Sec (11.4-14.6)
[2024-01-16 07:37] LABS: Glucose - Point of Care 122 mg/dl (70-99)
[2024-01-16 07:41] LABS: Hematocrit 37.1 % (39.0-52.0); Hemoglobin 12.5 g/dL (13.0-18.0); Mean Corp Hgb Conc. 33.7 g/dL (33.0-37.0); Mean Corpuscular Hgb 28.9 pg (27.0-31.0); Mean Corpuscular Volume 85.7 fL (80.0-94.0); Mean Platelet Volume 9.1 fL (7.4-10.4); Platelet Count 358 10^3/uL (130-400); Red Blood Cell Count 4.33 10^6/uL (4.70-6.10); Red Cell Dist. Width 12.8 % (11.5-14.5); White Blood Cell Count 8.4 10^3/uL (4.8-10.8)
[2024-01-16 07:42] LABS: Blood Urea Nitrogen 15 mg/dl (9-20); Calcium 8.9 mg/dl (8.4-10.2); Carbon Dioxide 25 mmol/L (22-30); Chloride 104 mmol/L (98-107); Estimated Creatinine Clearance 93 ml/min; Glucose 113 mg/dl (70-99); Potassium 4.6 mmol/L (3.5-5.1); Sodium 138 mmol/L (135-145); eGFR > 60.00
[2024-01-16] MEDS: NOVOLOG FLEXPEN-LOW RESISTANCE SC (08:17)
[2024-01-16] MEDS: JARDIANCE 25 MG PO (08:27)
[2024-01-16] MEDS: ASPIR LOW (ENTERIC COATED) 81 MG PO (08:27)
[2024-01-16] MEDS: GLUCOPHAGE 1000 MG PO ×2 (08:27→17:34)
[2024-01-16] MEDS: CRESTOR 10 MG PO (08:28)
--- NOTE | 2024-01-16 08:30 | W.PN.POD ---
Today's Communication
Today's Communication
S/P right foot wound I&D with bone biopsy
Assessment / Plan
-
S/P I&D right foot with bone biopsy and wound cultures
Type 2 Diabetes Mellitus
Peripheral neuropathy
Deep cultures and pathology are pending.
Once erythema is fully resolved, I recommend wound vac therapy to expedite granulation tissue formation.
Vac paperwork is completed and an order for an in house machine is placed - will asses tomrrwo for possible application
continue vanco/zosyn
Heel weight bearing in orthowedge shoe
At this point, patient is resistant to amputation even if bone pathology is positive for osteomyelitis and would prefer to treat with skilled nursing antibiotic therapy
Will follow culture/path results and consult with ID regarding plan.
Subjective
Chief Complaint
S/P I&D with bone biopsy right foot
Subjective
Patient is seen at bedside resting comfortably
Objective
Temp Pulse Resp BP Pulse Ox
99.5 F 91 18 124/74 95
01/16/24 07:18 01/16/24 07:18 01/16/24 07:18 01/16/24 07:18 01/16/24 07:18
01/16/24 06:06
01/16/24 06:06
Vital Signs and Lab results were reviewed.
Physical Exam
Physical Exam
Right foot with bandages in place. Small amount of bloody strikethrough at surgical site. Dorsal surgical site over the interspace has sutures in place. Plantar biopsy site also with sutures in place. Submet 5 ulceration with fibrogranular base,
minimal serous drainage. Wound is deep and probes to capsule/bone. Periwound erythema is significantly reduced. No signs of purulence or active infection
--- NOTE | 2024-01-16 10:21 | PHA.VAN.FU ---
Vancomycin Assessment / Plan
- Assessment
Renal Function: Stable
WBC's are: WNL
In the past 24 hrs, patient has been: Afebrile
Concomitant Antimicrobials: piperacillin/tazo
- Dosing Plan
Continue: vancomycin 1250 mg q12h
- Monitoring Plan
Peak Level: 01/15 2100 - after 6th maint dose
Trough Level: 01/16 0530
- Follow Up
Pharmacy will continue to follow.
Vancomycin Follow UP
- -
Patient Age: 63
Patient Sex: Male
Vancomycin Day #: 4
Indication: Skin And Soft Tissue
Requesting Provider: Dr. Jean Moreno / [place]
Pertinent Antimicrobial Allergies:
NKDA
Height / Weight:
Height 6 ft
Actual Weight 91.371 kg
IBW in k.6
Adjusted BW in k.1
Pertinent Past Medical History: DM
- Vital Signs / Lab Results
Temp Pulse Resp BP Pulse Ox
99.5 F 91 18 124/74 95
01/16/24 07:18 01/16/24 07:18 01/16/24 07:18 01/16/24 07:18 01/16/24 07:18
Lab Results - Hematology
01/14/24 01/16/24
06:58 06:06
WBC 9.9 8.4
Lab Results - Chemistry
01/14/24 01/15/24 01/15/24
06:58 06:36 09:04
BUN 14 16 Cancelled
Creatinine 0.8 1.0 Cancelled
Estimated Creat Clear 105 84 Cancelled
Albumin 3.5
01/16/24
06:06
BUN 15
Creatinine 0.9
Estimated Creat Clear 93
Albumin
01/13/24 01/13/24
11:39 15:12
Lactic Acid 0.8 0.7
Microbiology Results
01/13/24 00:25 Wound Culture - Preliminary
Foot - Right Gram negative bacilli
Staphylococcus species
Streptococcus agalactiae
Gram Stain - Preliminary
01/15/24 19:19 Gram Stain - Preliminary
Foot - Right
01/15/24 19:19 Gram Stain - Preliminary
Foot - Right
01/13/24 05:35 MRSA Screen - Final
Nose No Methicillin Resistant Staphylococcus aureus isolated.
--- NOTE | 2024-01-16 11:17 | CM ---
Patient seen at bedside. Patient eager to go home but pending wound vac consult for wound nursing. CM reviewed options and he is open to having VN if needed in addition to the wound Vac. Patient pending assessment by ID may need IV antibiotics. CM
will continue to follow for discharge planning needs.
Plan; home with wound vac; watch for home IV needs and VN needs.
[2024-01-16 12:03] LABS: Glucose - Point of Care 183 mg/dl (70-99)
[2024-01-16] MEDS: NOVOLOG FLEXPEN-LOW RESISTANCE 1 UNITS SC ×2 (13:09→17:34)
--- NOTE | 2024-01-16 13:47 | W.PN.HOSP.TC ---
Today's Communication/Plan
-
f/u intra-op culture report
continue abx per ID
Assessment / Plan
Assessment / Plan
MRI Right foot
Significant susceptibility artifact within the plantar soft tissues adjacent to the fifth metatarsophalangeal joint, from small metallic foreign body seen on plain radiographs. There is also a soft tissue wound in this region, which is better
visualized on plain radiographs.
There is abnormal marrow signal and enhancement involving the proximal aspect of the proximal phalanx, with some loss of plantar cortical definition, and this finding is highly suspicious for osteomyelitis. There is also some patchy marrow
abnormality and enhancement involving the distal fifth metatarsal head, which is also moderately suspicious for osteomyelitis.
Small complex fluid collection between the distal fourth and fifth metatarsal bones, which is likely a small abscess.
Arterial US
1. Normal ankle brachial indices on each side.
2. No focal arterial stenosis demonstrated on either side.

1. Right Diabetic foot infection
- right foot lateral plantar area wound ,no drainage, no significnat bogginess on exam.
- wound cs collected in ER. no blood cs,
- Foot xr did not show any osteo have small splinter like FB in the wound
- MRI foot report as above
- LE art doppler did not show any critical narrowing
- Underwent bedside debridement by surgical podiatry f/ued by OR debridement and bone biopsy on 01.14
- await bone biopsy report
- Pods recommended wound vac but no wound RN on weekend to help
2. NIDDM
- reported last A1c of 7.5 in past, this hospitalization is 81.
- On Mounjaro/Jardiance/metformin only.
- Have not been on insulin in the past.
- Managed by endocrinology outpatient .
- Maintain on sliding scale with Jardiance/metformin.
3. HLD
- continue on crestor
Full code
Patient preferred to be discharged home if possible although ideally would need to have bone biopsy/IntraOp culture report to guide therapy before discharge.
Anticipated Discharge: 24 - 48 hours
Subjective/Interval History
-
Date of Service: January 16, 2024
no problems overnight
denies having excessive right foot pain
Objective Data
-
Labs:
Laboratory Results
01/16/24
06:06
WBC 8.4
Hgb 12.5 L
Hct 37.1 L
Plt Count 358 D
PT 15.1 H
INR 1.20
Sodium 138
Potassium 4.6
Chloride 104
Carbon Dioxide 25
BUN 15
Creatinine 0.9
Glucose 113 H
Calcium 8.9
Vital Signs:
Vital Signs
Temp Pulse Resp BP Pulse Ox
99.5 F 91 18 124/74 95
01/16/24 07:18 01/16/24 07:18 01/16/24 07:18 01/16/24 07:18 01/16/24 07:18
I&O
01/15/24 01/16/24 01/17/24
06:59 06:59 06:59
Intake Total 1829 770 / 770
Balance 1829 770 / 770
Review of Systems
-
Respiratory: Reports No Symptoms
Cardiac: Reports No Symptoms
Abdomen/GI: Reports No Symptoms
Physical Exam
-
General: Comfortable
HEENT: Negative Oxygen
Respiratory: Clear to Auscultation
Cardiac: Regular Rhythm and S1/S2; Negative Murmur or Rub
GI: Soft, Nontender and Nondistended
Skin: Other (Right foot plantar surface wound, no drainage)
Neuro: Awake, Alert, Oriented, No Motor Deficits and Nonfocal/Grossly Intact
Psych: Calm
--- NOTE | 2024-01-16 14:59 | W.PN.ID1 ---
Date of Service
Date of Service: January 16, 2024
Today's Communication
- continue zosyn, stopped vanc; asked lab to ID the GNR
t
- follow clinically; likely course of 6 weeks of IV antibiotics which would need to be set up thursday
Assessment / Plan
Diabetic Foot Wound -chronic
DM2
- s/p washout, debridement and bone biopsy, fow wound vac tomorrow
- continue zosyn, stopped vanc; asked lab to ID the GNR
- OSWALDO normal
- recommend tight glucose control - can be addressed outpatient
- follow clinically; likely course of 6 weeks of IV antibiotics which would need to be set up thursday
Chief Complaint
-: Other (diabetic foot wound with underlying osteomyelitis)
Subjective / Review of Systems
afebrile
bp stable
without leukocytosis
cr stable
path pending
awiaitng sensi
Vital Signs / Physical Exam
Vital Signs
Vital Signs
Temp Pulse Resp BP Pulse Ox
99.5 F 91 18 124/74 95
01/16/24 07:18 01/16/24 07:18 01/16/24 07:18 01/16/24 07:18 01/16/24 07:18
Physical Exam
Constitutional: No Acute Distress
Cardiovascular: Regular Rate and S1/S2; Negative Murmur or Rub
Pulmonary: Clear and Symmetric; Negative Wheezes or Rales
Gastrointestinal: Soft, Non Tender, Non Distended and Normal Bowel Sounds
Skin: Warm and Dry; Negative Rash or Jaundice
Objective Data
Lab Data
Lab Results
01/16/24 06:06
01/16/24 06:06
PT 15.1 Sec (11.4-14.6) H 01/16/24 06:06
INR 1.20 01/16/24 06:06
Estimated Creat Clear 93 ml/min 01/16/24 06:06
Lactic Acid 0.7 mmol/L (0.7-2.0) 01/13/24 15:12
Total Bilirubin 1.0 mg/dl (0.2-1.3) 01/14/24 06:58
AST 14 U/L (17-59) L 01/14/24 06:58
ALT < 10 U/L (0-50) 01/14/24 06:58
Alkaline Phosphatase 68 U/L (38-126) 01/14/24 06:58
Most recent labs reviewed.
Micro Results:
01/15/24 19:19 Anaerobic Culture - Preliminary
Foot - Right Culture pending. Anaerobic cultures are examined after 3
days incubation. Additional information to follow.
01/15/24 19:19 Wound Culture - Preliminary
Foot - Right Gram Stain - Preliminary
01/15/24 19:19 Tissue Culture - Preliminary
Foot - Right Gram Stain - Preliminary
01/13/24 00:25 Wound Culture - Preliminary
Foot - Right Staphylococcus intermedius
Gram negative bacilli
Streptococcus agalactiae
Gram Stain - Preliminary
01/13/24 05:35 MRSA Screen - Final
Nose No Methicillin Resistant Staphylococcus aureus isolated.
[2024-01-16 15:23] VITALS: BP 101/66
[2024-01-16 16:15] LABS: Glucose - Point of Care 165 mg/dl (70-99)
[2024-01-16] MEDS: LOVENOX 40 MG SC (17:05)
[2024-01-16 21:16] LABS: Glucose - Point of Care 174 mg/dl (70-99)
[2024-01-16 23:32] VITALS: BP 131/82
[2024-01-17] MEDS: ZOSYN 50 IV ×4 (05:04→23:42)
[2024-01-17 06:35] LABS: Hematocrit 39.7 % (39.0-52.0); Hemoglobin 13.5 g/dL (13.0-18.0); Mean Corpuscular Hgb 28.2 pg (27.0-31.0); Mean Corpuscular Volume 83.1 fL (80.0-94.0); Mean Platelet Volume 8.7 fL (7.4-10.4); Platelet Count 402 10^3/uL (130-400); Red Blood Cell Count 4.78 10^6/uL (4.70-6.10); Red Cell Dist. Width 12.8 % (11.5-14.5); White Blood Cell Count 7.9 10^3/uL (4.8-10.8)
[2024-01-17 06:59] LABS: Glucose - Point of Care 132 mg/dl (70-99)
[2024-01-17 07:02] LABS: Blood Urea Nitrogen 15 mg/dl (9-20); Calcium 9.3 mg/dl (8.4-10.2); Carbon Dioxide 28 mmol/L (22-30); Chloride 103 mmol/L (98-107); Estimated Creatinine Clearance 105 ml/min; Glucose 148 mg/dl (70-99); Potassium 4.5 mmol/L (3.5-5.1); Sodium 140 mmol/L (135-145); eGFR > 60.00
[2024-01-17 07:30] VITALS: BP 119/81
[2024-01-17] MEDS: NOVOLOG FLEXPEN-LOW RESISTANCE SC (07:38)
[2024-01-17] MEDS: JARDIANCE 25 MG PO (08:47)
[2024-01-17] MEDS: CRESTOR 10 MG PO (08:47)
[2024-01-17] MEDS: GLUCOPHAGE 1000 MG PO ×2 (08:47→17:53)
[2024-01-17] MEDS: ASPIR LOW (ENTERIC COATED) 81 MG PO (08:47)
[2024-01-17 11:51] LABS: Glucose - Point of Care 158 mg/dl (70-99)
--- NOTE | 2024-01-17 12:35 | W.PN.HOSP.TC ---
Addendum entered and electronically signed by Perry Moreno MD 01/17/24 14:07:
In response to CDI query
Sepsis - POA - fever/leukocytosis/tachycardia - better now
Original Note:
Today's Communication/Plan
-
home abx infusion setup
f/u bone biopsy/culture report
Assessment / Plan
Assessment / Plan
MRI Right foot
Significant susceptibility artifact within the plantar soft tissues adjacent to the fifth metatarsophalangeal joint, from small metallic foreign body seen on plain radiographs. There is also a soft tissue wound in this region, which is better
visualized on plain radiographs.
There is abnormal marrow signal and enhancement involving the proximal aspect of the proximal phalanx, with some loss of plantar cortical definition, and this finding is highly suspicious for osteomyelitis. There is also some patchy marrow
abnormality and enhancement involving the distal fifth metatarsal head, which is also moderately suspicious for osteomyelitis.
Small complex fluid collection between the distal fourth and fifth metatarsal bones, which is likely a small abscess.
Arterial US
1. Normal ankle brachial indices on each side.
2. No focal arterial stenosis demonstrated on either side.

1. Right Diabetic foot infection
- right foot lateral plantar area wound ,no drainage, no significnat bogginess on exam.
- wound cs collected in ER. no blood cs,
- Foot xr did not show any osteo have small splinter like FB in the wound
- MRI foot report as above
- LE art doppler did not show any critical narrowing
- Underwent bedside debridement by surgical podiatry f/ued by OR debridement and bone biopsy on 01.14
- intraoperative culture growing Staphylococcus aureus. Bone biopsy report pending.
- Pods recommended wound vac but no wound RN on weekend to help
- ID recommended 6 weeks of antibiotic therapy. PICC line ordered/will require home infusion set up
2. NIDDM
- reported last A1c of 7.5 in past, this hospitalization is 81.
- On Mounjaro/Jardiance/metformin only.
- Have not been on insulin in the past.
- Managed by endocrinology outpatient .
- Maintain on sliding scale with Jardiance/metformin.
3. HLD
- continue on crestor
Full code
Anticipated Discharge: 24 - 48 hours
Subjective/Interval History
-
Date of Service: January 17, 2024
no complains overnight
Objective Data
-
Labs:
Laboratory Results
01/17/24
06:08
WBC 7.9
Hgb 13.5
Hct 39.7
Plt Count 402 H
Sodium 140
Potassium 4.5
Chloride 103
Carbon Dioxide 28
BUN 15
Creatinine 0.8
Glucose 148 H
Calcium 9.3
Vital Signs:
Vital Signs
Temp Pulse Resp BP Pulse Ox
99.0 F 84 16 119/81 95
01/17/24 07:30 01/17/24 07:30 01/17/24 07:30 01/17/24 07:30 01/17/24 07:30
I&O
01/16/24 01/17/24 01/18/24
06:59 06:59 06:59
Intake Total 770 / 770 1100 / 1100
Balance 770 / 770 1100 / 1100
Review of Systems
-
Respiratory: Reports No Symptoms
Cardiac: Reports No Symptoms
Abdomen/GI: Reports No Symptoms
Physical Exam
-
General: Comfortable
HEENT: Negative Oxygen
Respiratory: Clear to Auscultation
Cardiac: Regular Rhythm and S1/S2; Negative Murmur or Rub
GI: Soft, Nontender and Nondistended
Skin: Other (Right foot plantar surface wound, no drainage)
Neuro: Awake, Alert, Oriented, No Motor Deficits and Nonfocal/Grossly Intact
Psych: Calm
[2024-01-17] MEDS: NOVOLOG FLEXPEN-LOW RESISTANCE 1 UNITS SC ×2 (12:38→17:52)
--- NOTE | 2024-01-17 13:22 | W.PN.POD ---
Today's Communication
Today's Communication
S/P I&D right foot with bone biopsy
Assessment / Plan
-
S/P I&D right foot with bone biopsy and wound cultures - POD#2
Type 2 Diabetes Mellitus
Peripheral neuropathy
Deep cultures and pathology are pending.
Once erythema is fully resolved, I recommend wound vac therapy to expedite granulation tissue formation.
Vac paperwork is completed and an order for an in house machine is placed - VAc not available at dressing change. Will confer with case mgmt/wound nurses tomorrow.
continue zosyn, ID await ID of GNR
Heel weight bearing in orthowedge shoe - use rolling walker & limiting activity
At this point, patient is resistant to amputation even if bone pathology is positive for osteomyelitis and would prefer to treat with care home antibiotic therapy. Options were again dicussed at great length. Including risks benefits and
complications of both IV antibiotic and amputation options.
Will follow culture/path results and consult with ID regarding plan.
Subjective
Chief Complaint
Right foot wound S/P I&D with bone biopsy
Subjective
Patient is seen at bedside today. He is awake and alert. No complaints of pain
Objective
Temp Pulse Resp BP Pulse Ox
99.0 F 84 16 119/81 95
01/17/24 07:30 01/17/24 07:30 01/17/24 07:30 01/17/24 07:30 01/17/24 07:30
01/17/24 06:08
01/17/24 06:08
Vital Signs and Lab results were reviewed.
Physical Exam
Physical Exam
Right foot with bandages in place. Small amount of bloody strikethrough at surgical site. Dorsal surgical site over the interspace has sutures in place. Plantar biopsy site also with sutures in place. Submet 5 ulceration with fibrogranular base,
minimal serous drainage. The wound is showing signs of granulating tissue, however, the Wound is deep and probes to capsule/bone at the 12-3 o'clock position. Periwound erythema is significantly reduced. No signs of purulence or active infection
[2024-01-17 15:20] VITALS: BP 136/81
--- NOTE | 2024-01-17 15:50 | CM ---
Referral sent to [facility] following discussion with patient and ID. VM left and fax sent. Await call back and wound vac to be placed per chart review. CM will continue to follow for discharge planning needs.
Plan; home with IV antibiotics and wound vac
[2024-01-17 16:29] LABS: Glucose - Point of Care 166 mg/dl (70-99)
[2024-01-17] MEDS: LOVENOX 40 MG SC (17:10)
[2024-01-17] MEDS: NON-FORMULARY ITEM 1 UNIT SC (19:54)
[2024-01-17 22:09] LABS: Glucose - Point of Care 156 mg/dl (70-99)
[2024-01-17 23:36] VITALS: BP 104/58
[2024-01-18] MEDS: ZOSYN 50 IV (05:49)
[2024-01-18] MEDS: FLUSH (NSS) 2 FLUSH IV (05:50)
[2024-01-18 07:26] VITALS: BP 116/75
[2024-01-18 07:45] LABS: Glucose - Point of Care 140 mg/dl (70-99)
[2024-01-18] MEDS: NOVOLOG FLEXPEN-LOW RESISTANCE SC (08:10)
[2024-01-18 08:14] LABS: Hematocrit 37.9 % (39.0-52.0); Hemoglobin 12.8 g/dL (13.0-18.0); Mean Corp Hgb Conc. 33.8 g/dL (33.0-37.0); Mean Corpuscular Hgb 28.1 pg (27.0-31.0); Mean Corpuscular Volume 83.3 fL (80.0-94.0); Mean Platelet Volume 8.9 fL (7.4-10.4); Platelet Count 391 10^3/uL (130-400); Red Blood Cell Count 4.55 10^6/uL (4.70-6.10); Red Cell Dist. Width 12.8 % (11.5-14.5); White Blood Cell Count 6.9 10^3/uL (4.8-10.8)
[2024-01-18] MEDS: GLUCOPHAGE 1000 MG PO (08:15)
[2024-01-18] MEDS: CRESTOR 10 MG PO (08:16)
[2024-01-18] MEDS: ASPIR LOW (ENTERIC COATED) 81 MG PO (08:16)
[2024-01-18] MEDS: JARDIANCE 25 MG PO (08:16)
[2024-01-18 08:22] LABS: Blood Urea Nitrogen 16 mg/dl (9-20); Calcium 9.3 mg/dl (8.4-10.2); Carbon Dioxide 25 mmol/L (22-30); Chloride 102 mmol/L (98-107); Estimated Creatinine Clearance 84 ml/min; Glucose 157 mg/dl (70-99); Potassium 4.3 mmol/L (3.5-5.1); Sodium 137 mmol/L (135-145); eGFR > 60.00
--- NOTE | 2024-01-18 08:52 | WOUNDNOTE ---
WOC RN Note: Faxed a home ready care vac request to /[facility]. Nahomi Christianson confirmed she received the fax.
--- NOTE | 2024-01-18 10:05 | CM ---
Addendum entered by Miriam Edwards 01/18/24 14:36:
Home with [facility] and [facility]

[facility]

PICC line information faxed to [facility].
Home Vac applied by Wound Care Nurse
[facility] teaching completed.
Addendum entered by Miriam Edwards 01/18/24 11:33:
TC from [facility].
Medications covered at 100%.
Kashif from [facility] to come to patients room today between 12:30-1 pm for teaching.
Patient is calling spouse to come to the hospital for teaching.
PICC line to be inserted prior to teaching.
Per Cee [facility] they will deliver medications for 8 pm dose tonight, if patient is discharged.
Wound Care Nurse awaiting insurance approval for wound VAC.
Original Note:
Spoke with Cee from [facility], referral received.
[facility] will check costs.
Cee aware patient for tentative d/c today.
PICC line pending.
Wound VAC ordered.
Patient agreeable to [facility], referral placed.
Ortho Wedge shoe on patient.
Patient anxious to leave today.
Lives with spouse and she will also be able to learn IV anbx.
Plan: possible home today with IV anbx, woudn VAC and VN.
--- NOTE | 2024-01-18 10:16 | W.PN.ID1 ---
Date of Service
Date of Service: January 18, 2024
Today's Communication
- plan cefazolin 2 gm IV q8 hrs x6 weeks
- stable for dc from ID perspective once IV antibiotics set up
Assessment / Plan
Diabetic Foot Wound -chronic
DM2
- s/p washout, debridement and bone biopsy, now with wound vac
- klebsiella not seen in the OR cultures, superficial cultures known not to correlate with bone biopsy. will target the deep cultures s intermedius and gbs
- OSWALDO normal
- recommend tight glucose control - can be addressed outpatient
- PICC line
- plan cefazolin 2 gm IV q8 hrs x6 weeks
- stable for dc from ID perspective
Chief Complaint
-: Other (diabetic foot wound with underlying osteomyelitis)
Subjective / Review of Systems
afebrile
bp stable
without leukocytosis
cr stable
path pending
cxr done today: PICC in place
Vital Signs / Physical Exam
Vital Signs
Vital Signs
Temp Pulse Resp BP Pulse Ox
98.1 F 87 18 116/75 97
01/18/24 07:26 01/18/24 07:26 01/18/24 07:26 01/18/24 07:26 01/18/24 07:26
Physical Exam
Constitutional: No Acute Distress
Cardiovascular: Regular Rate and S1/S2; Negative Murmur or Rub
Pulmonary: Clear and Symmetric; Negative Wheezes or Rales
Gastrointestinal: Soft, Non Tender, Non Distended and Normal Bowel Sounds
Skin: Warm and Dry; Negative Rash or Jaundice
Objective Data
Lab Data
Lab Results
01/18/24 07:34
01/18/24 07:34
PT 15.1 Sec (11.4-14.6) H 01/16/24 06:06
INR 1.20 01/16/24 06:06
Estimated Creat Clear 84 ml/min 01/18/24 07:34
Lactic Acid 0.7 mmol/L (0.7-2.0) 01/13/24 15:12
Total Bilirubin 1.0 mg/dl (0.2-1.3) 01/14/24 06:58
AST 14 U/L (17-59) L 01/14/24 06:58
ALT < 10 U/L (0-50) 01/14/24 06:58
Alkaline Phosphatase 68 U/L (38-126) 01/14/24 06:58
Most recent labs reviewed.
Micro Results:
01/13/24 00:25 Wound Culture - Final
Foot - Right Klebsiella oxytoca
Staphylococcus intermedius
Streptococcus agalactiae
Gram Stain - Final
01/15/24 19:19 Anaerobic Culture - Preliminary
Foot - Right Culture pending. Anaerobic cultures are examined after 3
days incubation. Additional information to follow.
01/15/24 19:19 Wound Culture - Preliminary
Foot - Right Staphylococcus species
Streptococcus agalactiae
Gram Stain - Preliminary
01/15/24 19:19 Tissue Culture - Preliminary
Foot - Right Streptococcus agalactiae
Streptococcus species
Gram Stain - Preliminary
01/13/24 05:35 MRSA Screen - Final
Nose No Methicillin Resistant Staphylococcus aureus isolated.
--- NOTE | 2024-01-18 10:46 | VNURNOTE ---
Home Health Liaison met with patient at bedside to discuss [facility] nurse/therapy, visits, schedule and homebound status. Patient is agreeable and understands that visits at home will be 2-3 x per week to assess surgical site and provide wound vac
management. This author communicated with [facility] nurse Merlyn Soliman, awaiting wound vac approval. [facility] brochure provided with contact information. Patient is aware that [facility] will contact them for start of care in 1-2 days after discharge from .
[facility] referral completed in Care Port by CM. Intake office aware of pending SOC.
--- NOTE | 2024-01-18 11:28 | W.PN.POD ---
Today's Communication
Today's Communication
S/P I&D right foot with bone biopsy
Assessment / Plan
-
S/P I&D right foot with bone biopsy and wound cultures - POD#3
Type 2 Diabetes Mellitus
Peripheral neuropathy
Deep cultures and pathology are pending.
Wound VAc application today
Vac paperwork is completed and an order for an in house machine is placed - [facility] for dressing changes
continue zosyn, ID await ID of GNR
Heel weight bearing in orthowedge shoe - use rolling walker & limiting activity
At this point, patient is resistant to amputation even if bone pathology is positive for osteomyelitis and would prefer to treat with longterm antibiotic therapy. Options were again discussed at great length. Including risks benefits and
complications of both IV antibiotic and amputation options.
Will follow culture/path results and consult with ID regarding plan.
Subjective
Chief Complaint
S/P I& D with bone biopsy right foot
Subjective
Patient seen at bedside resting comfortably
Objective
Temp Pulse Resp BP Pulse Ox
98.1 F 87 18 116/75 97
01/18/24 07:26 01/18/24 07:26 01/18/24 07:26 01/18/24 07:26 01/18/24 07:26
01/18/24 07:34
01/18/24 07:34
Vital Signs and Lab results were reviewed.
Physical Exam
Physical Exam
Right foot with clean, dry bandages in place. Dorsal surgical site over the interspace has sutures in place. Plantar biopsy site also with sutures in place. Submet 5 ulceration with fibrogranular base, minimal serous drainage. The wound is
showing signs of granulating tissue, however, the Wound is deep and probes to capsule/bone at the 12-3 o'clock position. Periwound erythema is resolved. No signs of purulence or active infection
--- NOTE | 2024-01-18 11:34 | WOUNDNOTE ---
R PLANTAR LATERAL 5TH MT
--- NOTE | 2024-01-18 11:35 | WOUNDNOTE ---
R PLANTAR LATERAL 5TH MT (with photo flash)
--- NOTE | 2024-01-18 11:41 | WOUNDNOTE ---
[facility] RN note: Wound vac applied to R foot wound using [facility] rental vac ulta pump. Patient tolerated well. Instructed patient how to connect and disconnect vac tubing, how to trouble shoot vac alarm re: air leak, canister full. Patient aware to
call VN if his vac isn't maintaining suction. Nahomi updated that review team hasn't approved his vac yet and will let this proposal manager writer know when it's approved. Will switch to a ready home vac pump if/when approval is received. Instructed patient
pressure injury prevention measures. He has a [employer] ortho wedge shoe for his R foot.
[2024-01-18] MEDS: ANCEF 10 IV (12:19)
[2024-01-18 12:21] LABS: Glucose - Point of Care 154 mg/dl (70-99)
[2024-01-18] MEDS: NOVOLOG FLEXPEN-LOW RESISTANCE 1 UNITS SC (12:23)
--- NOTE | 2024-01-18 12:29 | WOUNDNOTE ---
WOC RN note: Nahomi Christianson notified this investigative writer that the Ready home vac was approved. Plan to bring up and connect his home vac today.
--- NOTE | 2024-01-18 14:02 | VNURNOTE ---
Patient received IV antibiotic teaching at bedside- [facility]. This author spoke with . She confirms patient has a rolling walker at home. WODereck Soliman at bedside now. Patient is confirmed for [facility] start of care for Weds.
--- NOTE | 2024-01-18 14:07 | W.PN.HOSP.TC ---
Today's Communication/Plan
-
place picc line
set up home atb infusion
home wound vac
dc home
Assessment / Plan
Assessment / Plan
MRI Right foot
Significant susceptibility artifact within the plantar soft tissues adjacent to the fifth metatarsophalangeal joint, from small metallic foreign body seen on plain radiographs. There is also a soft tissue wound in this region, which is better
visualized on plain radiographs.
There is abnormal marrow signal and enhancement involving the proximal aspect of the proximal phalanx, with some loss of plantar cortical definition, and this finding is highly suspicious for osteomyelitis. There is also some patchy marrow
abnormality and enhancement involving the distal fifth metatarsal head, which is also moderately suspicious for osteomyelitis.
Small complex fluid collection between the distal fourth and fifth metatarsal bones, which is likely a small abscess.
Arterial US
1. Normal ankle brachial indices on each side.
2. No focal arterial stenosis demonstrated on either side.

1. Right Diabetic foot infection
- right foot lateral plantar area wound ,no drainage, no significnat bogginess on exam.
- wound cs collected in ER. no blood cs,
- Foot xr did not show any osteo have small splinter like FB in the wound
- MRI foot report as above
- LE art doppler did not show any critical narrowing
- Underwent bedside debridement by surgical podiatry f/ued by OR debridement and bone biopsy on 01.14
- intraoperative culture growing Staphylococcus aureus. Bone biopsy report pending.
- Pods recommended wound vac but no wound RN on weekend to help
- ID recommended 6 weeks of antibiotic therapy. PICC line ordered/will require home infusion set up
2. NIDDM
- reported last A1c of 7.5 in past, this hospitalization is 81.
- On Mounjaro/Jardiance/metformin only.
- Have not been on insulin in the past.
- Managed by endocrinology outpatient .
- Maintain on sliding scale with Jardiance/metformin.
3. HLD
- continue on crestor
Full code
Anticipated Discharge: Today
Subjective/Interval History
-
Date of Service: January 18, 2024
seen and examined. no new complaints. no acute overnght events
ready to go home
Objective Data
-
Labs:
Laboratory Results
01/18/24
07:34
WBC 6.9
Hgb 12.8 L
Hct 37.9 L
Plt Count 391
Sodium 137
Potassium 4.3
Chloride 102
Carbon Dioxide 25
BUN 16
Creatinine 1.0
Glucose 157 H
Calcium 9.3
Vital Signs:
Vital Signs
Temp Pulse Resp BP Pulse Ox
98.1 F 87 18 116/75 97
01/18/24 07:26 01/18/24 07:26 01/18/24 07:26 01/18/24 07:26 01/18/24 07:26
I&O
01/17/24 01/18/24 01/19/24
06:59 06:59 06:59
Intake Total 1100 / 1100 580 / 580
Balance 1100 / 1100 580 / 580
--- NOTE | 2024-01-18 14:24 | WOUNDNOTE ---
WO RN note: Patient's home vac was connected to patient's vac dressing. Instructed patient and how to turn on/off home vac pump, change canister, plug in and how to trouble shoot vac alarm (i.e. Air leak and full canister alarms). Instructed
patient if abiola bleeding occurs to clamp vac tubing, turn off vac pump and call 911. Instructed patient to call or [employer] 12/01 for vac concerns. Patient aware the vac suction cannot be off for more than 2 hrs. Patient signed ready home
vac proof of delivery form. Will fax to [employer].
--- NOTE | 2024-01-18 15:28 | W.PN.UPDATE ---
Update Note
Progress Note Update
Patient Discharged which I agree with
Final plan:
Diabetic Foot Wound -chronic
DM2
- s/p washout, debridement and bone biopsy, now with wound vac
- klebsiella not seen in the OR cultures, superficial cultures known not to correlate with bone biopsy. will target the deep cultures s intermedius and gbs
- OSWALDO normal
- recommend tight glucose control - can be addressed outpatient
- PICC line
- plan cefazolin 2 gm IV q8 hrs x6 weeks
- stable for dc from ID perspective
--- NOTE | 2024-01-18 15:50 | WOUNDNOTE ---
WOC RN Note: Faxed home ready vac proof of deliver form to Nahomi Christianson at [employer]. Nahomi confirmed she received the fax.
== END 2024-01-18 15:18 | disposition home health service (06) | DRG 854 ==
LOC: 4 EAST ACU 03:06
PROVIDERS: Hospitalist; ADMITTING PHYSICIAN Internal Medicine; ATTENDING PHYSICIAN Hospitalist; CONSULT PHYSICIAN Podiatrist; CONSULT PHYSICIAN Student in an Organized Health Care Education/Training Program; EMERGENCY PHYSICIAN Student in an Organized Health Care Education/Training Program; FAMILY PHYSICIAN Internal Medicine
PROC: 0JBQ0ZZ Excision of Right Foot Subcutaneous Tissue and Fascia, Open Approach (ICD-10-PCS; 2024-01-15)
PROC: 0QBQ0ZX Excision of Right Toe Phalanx, Open Approach, Diagnostic (ICD-10-PCS; 2024-01-15)
DX: A41.9 Sepsis, unspecified organism (principal); L03.115 Cellulitis of right lower limb; M86.9 Osteomyelitis, unspecified; E11.69 Type 2 diabetes mellitus with other specified complication; E11.42 Type 2 diabetes mellitus with diabetic polyneuropathy; E11.621 Type 2 diabetes mellitus with foot ulcer; L97.519 Non-pressure chronic ulcer of other part of right foot with unspecified severity; B95.61 Methicillin susceptible Staphylococcus aureus infection as the cause of diseases classified elsewhere; S90.454A Superficial foreign body, right lesser toe(s), initial encounter; X58.XXXA Exposure to other specified factors, initial encounter; M19.071 Primary osteoarthritis, right ankle and foot; E78.5 Hyperlipidemia, unspecified; Z79.4 Long term (current) use of insulin; Z79.84 Long term (current) use of oral hypoglycemic drugs; Z79.82 Long term (current) use of aspirin; Z79.899 Other long term (current) drug therapy
CPT/HCPCS: 88304; 88311; 71045; 73630; 73723; 80048; 80053; 82565; 82962; 83036; 83605; 84520; 85025; 85027; 85610; 87070; 87075; 87076; 87077; 87147; 87176; 87186; 87205; 93005; 93922; 93925; 99285; A9575

== ENCOUNTER 2024-03-15 06:05 | Day surgery (SDC) | payer OTHER, SELFPAY ==
[2024-03-11 08:24] VITALS: BMI 23.7
[2024-03-11 08:51] LABS: Hematocrit 42.9 % (39.0-52.0); Mean Corp Hgb Conc. 32.6 g/dL (33.0-37.0); Mean Corpuscular Hgb 28.6 pg (27.0-31.0); Mean Corpuscular Volume 87.6 fL (80.0-94.0); Platelet Count 387 10^3/uL (130-400); Red Cell Dist. Width 13.8 % (11.5-14.5); White Blood Cell Count 7.5 10^3/uL (4.8-10.8)
[2024-03-11 09:26] LABS: Blood Urea Nitrogen 25 mg/dl (9-20); Calcium 9.8 mg/dl (8.4-10.2); Carbon Dioxide 23 mmol/L (22-30); Chloride 102 mmol/L (98-107); Estimated Creatinine Clearance 83 ml/min; Glucose 144 mg/dl (70-99); Potassium 5.1 mmol/L (3.5-5.1); Sodium 140 mmol/L (135-145); eGFR > 60.00
--- NOTE | 2024-03-11 14:00 | PTCARENOTE ---
Patients 03/11 ECG abnormal- reviewed by Dr. Hardy- no additional interventions required
[2024-03-15] VITALS (9 sets, daily range): BP systolic 113–135; BP diastolic 68–80; BMI 23.7
[2024-03-15] MEDS: CELEBREX 200 MG PO (06:25)
[2024-03-15] MEDS: TYLENOL 1000 MG PO (06:25)
[2024-03-15 06:34] LABS: Glucose - Point of Care 204 mg/dl (70-99)
[2024-03-15] MEDS: NORMOSOL-R/PLASMALYTE-A 1000 IV (06:34)
[2024-03-15] MEDS: NOVOLOG vial 2 UNITS SC (06:45)
[2024-03-15 08:03] LABS: Glucose - Point of Care 211 mg/dl (70-99)
== END 2024-03-15 09:45 | disposition home or self-care (01) ==
LOC: SDS 06:05
PROVIDERS: ATTENDING PHYSICIAN Student in an Organized Health Care Education/Training Program; FAMILY PHYSICIAN Internal Medicine; OTHER PHYSICIAN Podiatrist
DX: M86.171 Other acute osteomyelitis, right ankle and foot (principal); L97.519 Non-pressure chronic ulcer of other part of right foot with unspecified severity; M86.671 Other chronic osteomyelitis, right ankle and foot
CPT/HCPCS: 28810; 88304; 88311; 36415; 80048; 82962; 85027; 87070; 87075; 87147; 87186; 87205; 93005

== ENCOUNTER 2024-08-23 06:05 | Day surgery (SDC) | payer OTHER, SELFPAY ==
[2024-08-23 07:11] VITALS: BMI 26.5
[2024-08-23 07:12] VITALS: BMI 26.5
[2024-08-23 07:14] VITALS: BP 130/83
[2024-08-23 07:19] LABS: Glucose - Point of Care 169 mg/dl (70-99)
[2024-08-23 08:33] VITALS: BP 95/68
[2024-08-23 08:45] VITALS: BP 112/80
[2024-08-23 09:00] VITALS: BP 113/97
== END 2024-08-23 08:31 | disposition home or self-care (01) ==
LOC: GI 06:05
PROVIDERS: ATTENDING PHYSICIAN Internal Medicine Gastroenterology
DX: Z12.11 Encounter for screening for malignant neoplasm of colon (principal); K63.5 Polyp of colon; K64.0 First degree hemorrhoids; Z85.038 Personal history of other malignant neoplasm of large intestine; Z86.0101 Personal history of adenomatous and serrated colon polyps; Z98.890 Other specified postprocedural states
CPT/HCPCS: 45331; 88305; 82962